=== PATIENT | female | born 1970 | race Caucasian/White ===

== ENCOUNTER → 2016-06-26 | Outpatient (REF) | payer MEDICARE | LOC: M LAB REF 12:23 | PROVIDERS: ATTEND Nurse Practitioner Adult Health | DX: D50.9 Iron deficiency anemia, unspecified (principal); Z11.59 Encounter for screening for other viral diseases ==

== ENCOUNTER → 2016-09-26 | Outpatient (REF) | payer MEDICARE | LOC: M LAB REF 12:55 | PROVIDERS: ATTEND Nurse Practitioner Adult Health | DX: D50.9 Iron deficiency anemia, unspecified (principal) ==

== ENCOUNTER → 2016-12-27 | Outpatient (REF) | payer MEDICARE | LOC: M LAB REF 11:29 | PROVIDERS: ATTEND Podiatrist | DX: L03.032 Cellulitis of left toe (principal) ==

== ENCOUNTER → 2017-06-11 | Outpatient (REF) | payer MEDICARE | LOC: M LAB REF 12:36 | DX: N39.0 Urinary tract infection, site not specified (principal) | CPT/HCPCS: 87086 ==

== ENCOUNTER → 2018-10-17 | Outpatient (REF) | payer MEDICARE | LOC: M LAB REF 12:19 | PROVIDERS: ATTEND Nurse Practitioner Adult Health | DX: D50.9 Iron deficiency anemia, unspecified (principal) ==

== ENCOUNTER 2019-06-09 12:12 | Day surgery (SDC) | payer MEDICARE ==
[~2019-06-09] VITALS: Ht 162.6 cm; Wt 99.8 kg
[~2019-06-09 12:12] MED LIST: FERR5ELX PO; HUMA100I5 SC; LANTINJ4 SC; METF10004 PO; NEUR300C PO; NS 1,000 ML IV ONE; SERT-138 PO; TRAZ-252 PO
[2019-06-09] MEDS ORDERED: LIDOCAINE 2% INJ 100 MG/5 ML SDV (FOR ANES.) As Ordered ONE (12:17)
[2019-06-09] MEDS ORDERED: propofoL 500 MG/50 ML VIAL As Ordered ONE (12:17)
--- NOTE | 2019-06-09 14:39 | ROOR ---
Patient Name: Mary Ewing Procedure Date: 06/09/2019 2:23 PM Date of : 1970 Age: 48 Room: [facility] Gender: Female Note Status: Finalized Procedure: Upper Endoscopy + Biopsies Indications: Unexplained iron deficiency anemia Providers: Rizwan Staples MD Referring MD: Ellyn Hou NP Requesting Provider: Medicines: Monitored Anesthesia Care Complications: No immediate complications. Procedure: Pre-Anesthesia Assessment: - The heart rate, respiratory rate, oxygen saturations, blood pressure, adequacy of pulmonary ventilation, and response to care were monitored throughout the procedure. The Endoscope was introduced through the mouth, and advanced to the second part of duodenum. The upper GI endoscopy was accomplished without difficulty. The patient tolerated the procedure well. Findings: The Z-line was regular and was found 35 cm from the incisors. Evidence of a gastric bypass was found. A gastric pouch with a small size was found. The staple line appeared intact. The gastrojejunal anastomosis was characterized by healthy appearing mucosa. This was traversed. Biopsies for histology were taken with a cold forceps for evaluation of celiac disease. The exam was otherwise without abnormality. Impression: - Z-line regular, 35 cm from the incisors. - Gastric bypass with a small-sized pouch and intact staple line. Gastrojejunal anastomosis characterized by healthy appearing mucosa. Biopsied. - The examination was otherwise normal. Recommendation: - Patient has a contact number available for emergencies. The signs and symptoms of potential delayed complications were discussed with the patient. Return to normal activities tomorrow. Written discharge instructions were provided to the patient. - Discharge patient to home. - Follow an antireflux regimen. - Continue present medications. - Await pathology results. - Telephone GI clinic for pathology results in 1 week. - Return to referring physician. - The findings and recommendations were discussed with the patient's family. Rizwan Staples MD Rizwan Staples MD 06/09/2019 2:39:23 PM Electronically signed by Rizwan Staples MD Number of Addenda: 0 Note Initiated On: 06/09/2019 2:23 PM Estimated Blood Loss: Estimated blood loss: none.
--- NOTE | 2019-06-09 15:11 | ROOR ---
Patient Name: Mary Ewing Procedure Date: 06/09/2019 2:24 PM Date of : 1970 Age: 48 Room: [facility] Gender: Female Note Status: Finalized Procedure: Total Colonoscopy to Cecum + Cold Snare Polypectomy Indications: Unexplained iron deficiency anemia Providers: Rizwan Staples MD Referring MD: Ellyn Hou NP Requesting Provider: Medicines: Monitored Anesthesia Care Complications: No immediate complications. Procedure: Pre-Anesthesia Assessment: - The heart rate, respiratory rate, oxygen saturations, blood pressure, adequacy of pulmonary ventilation, and response to care were monitored throughout the procedure. The Colonoscope was introduced through the anus and advanced to the cecum, identified by appendiceal orifice and ileocecal valve. The colonoscopy was performed without difficulty. The patient tolerated the procedure well. The quality of the bowel preparation was good. Findings: The perianal and digital rectal examinations were normal. Non-bleeding internal hemorrhoids were found during retroflexion. The hemorrhoids were small and Grade I (internal hemorrhoids that do not prolapse). A small polyp was found at 30 cm proximal to the anus. The polyp was sessile. The polyp was removed with a cold snare. Resection and retrieval were complete. Two sessile polyps were found in the cecum. The polyps were medium in size. These polyps were removed with a cold snare. Resection and retrieval were complete. The exam was otherwise without abnormality on direct and retroflexion views. Impression: - Non-bleeding internal hemorrhoids. - One small polyp at 30 cm proximal to the anus, removed with a cold snare. Resected and retrieved. - Two medium polyps in the cecum, removed with a cold snare. Resected and retrieved. - The examination was otherwise normal on direct and retroflexion views. - The exam was otherwise normal to the cecum. Recommendation: - Patient has a contact number available for emergencies. The signs and symptoms of potential delayed complications were discussed with the patient. Return to normal activities tomorrow. Written discharge instructions were provided to the patient. - High fiber diet. - Discharge patient to home. - Continue present medications. - Await pathology results. - Telephone GI clinic for pathology results in 1 week. - Repeat colonoscopy in 3 years for surveillance based on pathology results. - Return to referring physician. - The findings and recommendations were discussed with the patient's family. Rizwan Staples MD Rizwan Staples MD 06/09/2019 3:10:53 PM Electronically signed by Rizwan Staples MD Number of Addenda: 0 Note Initiated On: 06/09/2019 2:24 PM Estimated Blood Loss: Estimated blood loss: none.
[2019-06-09 15:30] VITALS: BP 150/71
== END 2019-06-09 15:46 | disposition home or self-care (01) ==
LOC: M OPP 12:12
PROVIDERS: ATTEND Internal Medicine Gastroenterology
DX: K64.0 First degree hemorrhoids (principal); D12.6 Benign neoplasm of colon, unspecified; D12.0 Benign neoplasm of cecum; D50.9 Iron deficiency anemia, unspecified; Z98.84 Bariatric surgery status; F17.210 Nicotine dependence, cigarettes, uncomplicated; E11.9 Type 2 diabetes mellitus without complications; Z79.4 Long term (current) use of insulin; Z79.899 Other long term (current) drug therapy; Z88.0 Allergy status to penicillin

== ENCOUNTER → 2019-09-09 | Outpatient (REF) | payer MEDICARE ==
[~2019-09-09] MED LIST changes: -NS 1,000 ML IV ONE
== END ==
LOC: M LAB REF 09:00
PROVIDERS: ATTEND Surgery
DX: L72.3 Sebaceous cyst (principal)

== ENCOUNTER → 2020-06-10 | Outpatient (REF) | payer MEDICARE ==
[2020-06-10 13:32] LABS: INR 0.92; PROTHROMBIN TIME 12.5 SECONDS (12.5-14.3)
[2020-06-10 13:33] LABS: PARTIAL THROMBOPLASTIN TIME 26.6 SECONDS (24.2-38.5)
== END ==
LOC: M LAB REF 12:17
PROVIDERS: ATTEND Internal Medicine
DX: Z01.818 Encounter for other preprocedural examination (principal)

== ENCOUNTER → 2021-03-16 | Outpatient (REF) | payer MEDICARE | LOC: M LAB REF 12:31 | PROVIDERS: ATTEND Nurse Practitioner Adult Health | DX: Z98.84 Bariatric surgery status (principal) ==

== ENCOUNTER → 2021-10-11 | Outpatient (REF) | payer MEDICARE ==
[2021-10-11 17:03] LABS: BACTERIA, URINE AUTO 3+ (NEGATIVE); MUCUS, URINE MODERATE (NEGATIVE); RBC, URINE AUTO 40 /HPF (0-3); SQUAMOUS EPITHELIAL CELL UR AU 10 /HPF (0-6); WBC, URINE AUTO TNTC /HPF (0-3)
== END ==
LOC: M LAB REF 16:44
PROVIDERS: ATTEND Nurse Practitioner Adult Health
DX: N39.0 Urinary tract infection, site not specified (principal)

== ENCOUNTER → 2022-07-03 | Outpatient (REF) | payer MEDICARE | LOC: M LAB REF 11:00 | PROVIDERS: ATTEND Nurse Practitioner Adult Health | DX: N39.0 Urinary tract infection, site not specified (principal) ==

== ENCOUNTER → 2023-01-10 | Outpatient (REF) | payer MEDICARE ==
[~2023-01-10] MED LIST changes: +FERR220E10 PO; -FERR5ELX PO
[2023-01-10 17:22] LABS: HEMATOCRIT 33.5 % (36.0-47.0)
[2023-01-10 17:33] LABS: PERCENT SATURATION 7.6 % (13.2-45.0)
[2023-01-10 17:35] LABS: FERRITIN 5.9 NG/ML (7.3-270.7)
== END ==
LOC: M LAB REF 16:38
PROVIDERS: ATTEND Nurse Practitioner Adult Health
DX: D50.9 Iron deficiency anemia, unspecified (principal)

== ENCOUNTER → 2023-07-03 | Outpatient (REF) | payer MEDICARE ==
[2023-07-03 14:07] LABS: HEMATOCRIT 37.1 % (36.0-47.0)
[2023-07-03 14:13] LABS: PERCENT SATURATION 9.9 % (13.2-45.0)
[2023-07-03 14:17] LABS: FERRITIN 5.2 NG/ML (7.3-270.7)
== END ==
LOC: M LAB REF 13:53
PROVIDERS: ATTEND Nurse Practitioner Adult Health
DX: D50.9 Iron deficiency anemia, unspecified (principal)

== ENCOUNTER 2024-02-14 08:42 | Day surgery (SDC) | payer MEDICARE ==
[~2024-02-14] VITALS: Ht 162.6 cm; Wt 73.5 kg
[2024-02-14] MEDS: CEFUROXIME 1MG/0.1ML INTRACAMERAL INJ As Ordered ONE (07:01)
[~2024-02-14 08:42] MED LIST changes: +ASPI81TA26 PO; +ATOR80TA59 PO; +CLOP75TA99 PO; +EZET10TA21 PO; +IRON27TA2 PO; +PHENYLEPHRINE 10% OPHTH SOL 5ML OD PRN; +SEMA0.257 SQ; +TELM1TAB33 PO; +THERTAB52 PO; +ZOLO100T PO
[2024-02-14] MEDS: LIDOCAINE 3.5 % 1ML OPHTH TOPICAL GEL OU ONE (10:20)
[2024-02-14] MEDS: OFLOXACIN 0.3 % (OCUFLOX) OPTH SOL 5ML OD ONE (10:20)
[2024-02-14] MEDS: ATROPINE SULFATE 1% OPHTH SOLN 2ML BTL OD SCH (10:20)
[2024-02-14] MEDS: PHENYLEPHRINE 2.5% OPHTH SOL 2ML OD SCH (10:21)
[2024-02-14] MEDS: TROPICAMIDE 1% OPHTH SOLN 15ML OD SCH (10:21)
[2024-02-14] MEDS ORDERED: MIDAZOLAM INJ 2MG/2ML VIAL As Ordered ONE (10:58)
[2024-02-14] MEDS: BSS IRRIG/VANCO(10MG)/TOBRA(5MG)/EPINEPH(1:1000-0.5CC)500ML BAG-ORONLY As Ordered ONE (11:13)
[2024-02-14] MEDS: LIDOCAINE 1% SDV 5ML VIAL As Ordered ONE (11:13)
[2024-02-14 11:28] VITALS: BP 145/68; TEMP 97.6; O2SAT 99
== END 2024-02-14 11:47 | disposition home or self-care (01) ==
LOC: M SDC 08:42
PROVIDERS: ATTEND Ophthalmology
DX: H25.11 Age-related nuclear cataract, right eye (principal); E11.9 Type 2 diabetes mellitus without complications; I25.2 Old myocardial infarction; Z95.5 Presence of coronary angioplasty implant and graft; Z79.899 Other long term (current) drug therapy; Z87.891 Personal history of nicotine dependence
CPT/HCPCS: 66984; J0697; J2250; V2632

== ENCOUNTER 2024-02-28 07:52 | Day surgery (SDC) | payer MEDICARE ==
[~2024-02-28] VITALS: Ht 163.8 cm; Wt 74.8 kg
[~2024-02-28 07:52] MED LIST changes: -PHENYLEPHRINE 10% OPHTH SOL 5ML OD PRN; +PHENYLEPHRINE 10% OPHTH SOL 5ML OS PRN
[2024-02-28] MEDS ORDERED: fentaNYL 100 MCG/2 ML INJECTION As Ordered ONE (08:15)
[2024-02-28] MEDS ORDERED: MIDAZOLAM INJ 2MG/2ML VIAL As Ordered ONE (08:16)
[2024-02-28] MEDS: OFLOXACIN 0.3 % (OCUFLOX) OPTH SOL 5ML OS ONE (10:00)
[2024-02-28] MEDS: LIDOCAINE 3.5 % 1ML OPHTH TOPICAL GEL OU ONE (10:00)
[2024-02-28] MEDS: PHENYLEPHRINE 2.5% OPHTH SOL 2ML OS SCH (10:30)
[2024-02-28] MEDS: TROPICAMIDE 1% OPHTH SOLN 15ML OS SCH (10:30)
[2024-02-28] MEDS: ATROPINE SULFATE 1% OPHTH SOLN 2ML BTL OS SCH (10:30)
[2024-02-28] MEDS: BSS IRRIG/VANCO(10MG)/TOBRA(5MG)/EPINEPH(1:1000-0.5CC)500ML BAG-ORONLY As Ordered ONE (10:38)
[2024-02-28] MEDS: LIDOCAINE 1% SDV 5ML VIAL As Ordered ONE (10:42)
[2024-02-28] MEDS: MOXIFLOXACIN 0.6MG/0.4ML INTRAOCULAR SYRINGE As Ordered ONE (10:43)
[2024-02-28 11:01] VITALS: BP 118/56; TEMP 97.3; O2SAT 100
== END 2024-02-28 11:03 | disposition home or self-care (01) ==
LOC: M SDC 07:52
PROVIDERS: ATTEND Ophthalmology
DX: E11.36 Type 2 diabetes mellitus with diabetic cataract (principal); H25.12 Age-related nuclear cataract, left eye; I10 Essential (primary) hypertension; E11.40 Type 2 diabetes mellitus with diabetic neuropathy, unspecified; E78.00 Pure hypercholesterolemia, unspecified; D64.9 Anemia, unspecified; I25.2 Old myocardial infarction; Z95.5 Presence of coronary angioplasty implant and graft; Z79.82 Long term (current) use of aspirin; Z79.4 Long term (current) use of insulin; Z79.84 Long term (current) use of oral hypoglycemic drugs; Z79.02 Long term (current) use of antithrombotics/antiplatelets; Z88.0 Allergy status to penicillin; Z98.84 Bariatric surgery status; Z90.710 Acquired absence of both cervix and uterus
CPT/HCPCS: 66984; J2250; J3010; V2632

== ENCOUNTER → 2024-07-31 | Outpatient (REF) | payer MEDICARE ==
[~2024-07-31] MED LIST changes: -PHENYLEPHRINE 10% OPHTH SOL 5ML OS PRN
== END ==
LOC: M LAB REF 11:42
PROVIDERS: ATTEND Nurse Practitioner Adult Health
DX: N39.0 Urinary tract infection, site not specified (principal)

== ENCOUNTER 2024-08-26 14:03 | Inpatient (IN) | payer MEDICARE ==
[~2024-08-26] VITALS: Ht 162.6 cm; Wt 76.3 kg
[2024-08-26 17:55] VITALS: BP 147/74; TEMP 97.2; O2SAT 97
[2024-08-26 19:38] VITALS: BP 126/76; TEMP 97.7; O2SAT 97
[2024-08-26 19:45] LABS: BASO # 0.1 10^3/uL (0.0-0.2); BASO % 0.9 % (0.0-1.0); EOS # 0.8 10^3/uL (0.0-0.5); EOS % 7.2 % (0.0-3.0); HEMATOCRIT 31.1 % (36.0-47.0); HEMOGLOBIN 9.6 g/dl (12.0-15.5); LYMPH # 3.7 10^3/uL (1.5-5.0); LYMPH % 32.4 % (24.0-44.0); MEAN CORPUSCULAR HEMOGLOBIN 26.4 pg (27.0-33.0); MEAN CORPUSCULAR HGB CONC 30.9 g/dl (32.0-36.5); MEAN CORPUSCULAR VOLUME 85.7 fl (80.0-96.0); MONO # 0.7 10^3/uL (0.0-0.8); MONO % 5.8 % (2.0-8.0); NEUTROPHILS # 6.1 10^3/uL (1.5-8.5); NEUTROPHILS % 53.4 % (36.0-66.0); PLATELET COUNT, AUTOMATED 587 10^3/uL (150-450); RED BLOOD COUNT 3.63 10^6/uL (4.00-5.40); WHITE BLOOD COUNT 11.5 10^3/uL (4.0-10.0)
[2024-08-26 19:54] LABS: ERYTHROCYTE SEDIMENTATION RATE 66 mm/hr (0-30)
[2024-08-26 19:57] LABS: INR 0.92; PARTIAL THROMBOPLASTIN TIME 25.5 SECONDS (24.8-34.2); PROTHROMBIN TIME 12.7 SECONDS (12.5-14.5)
[2024-08-26 20:05] LABS: C REACTIVE PROTEIN QUANTITATIV < 0.50 MG/DL (<1.0)
[2024-08-26 20:06] LABS: ALBUMIN 3.6 G/DL (3.2-5.2); ALKALINE PHOSPHATASE 79 U/L (35-104); ALT/SGPT 15 U/L (7.0-40); AST/SGOT 11 U/L (<34); BILIRUBIN,DIRECT < 0.1 MG/DL (<0.4); BILIRUBIN,TOTAL 0.2 MG/DL (0.3-1.2); BLOOD UREA NITROGEN 16 MG/DL (9-23); CALCIUM LEVEL 9.4 MG/DL (8.5-10.1); CARBON DIOXIDE LEVEL 24 MMOL/L (20-31); CHLORIDE LEVEL 105 MMOL/L (98-107); CREATININE FOR GFR 0.75 MG/DL (0.55-1.30); GLOMERULAR FILTRATION RATE > 90.0 (>51); GLUCOSE, FASTING 93 MG/DL (60-100); MAGNESIUM LEVEL 1.8 MG/DL (1.8-2.4); POTASSIUM SERUM 5.3 MMOL/L (3.5-5.1); SODIUM LEVEL 139 MMOL/L (136-145)
[2024-08-26] MEDS ORDERED: OXYC1TAB23 PO (20:29)
[2024-08-26] MEDS ORDERED: PRAZ1CAP PO (20:30)
[2024-08-26] MEDS ORDERED: MED REC COMMENT (20:34)
[2024-08-26] MEDS ORDERED: HOME MED LIST COMPLETE! XX SCH (20:35)
[2024-08-26] MEDS ORDERED: ONDANSETRON 4MG ORAL DISINTEGRATING TAB PO PRN (21:10)
[2024-08-26] MEDS ORDERED: MORPHINE 2 MG/ML 1ML VIAL IV PRN (21:10)
[2024-08-26] MEDS ORDERED: GLUCOSE 4 GM CHEW PO PRN (21:10)
[2024-08-26] MEDS ORDERED: NALOXONE INJ 0.4MG/1ML VIAL IV PRN (21:10)
[2024-08-26] MEDS ORDERED: MAALOX 30 ML SUSP *UDC PO PRN (21:10)
[2024-08-26] MEDS ORDERED: MORPHINE 4 MG/ML 1ML VIAL IV PRN (21:10)
[2024-08-26] MEDS ORDERED: GLUCAGON INJ 1MG VIAL SC PRN (21:10)
[2024-08-26] MEDS ORDERED: MOM 30ML SUSPENSION UDC PO PRN (21:10)
[2024-08-26] MEDS ORDERED: METHOCARBAMOL 1,000 MG/10 ML VIAL IV PRN (21:10)
[2024-08-26] MEDS ORDERED: DEXTROSE 50% 50ML SYRINGE IV PRN (21:10)
[2024-08-26] MEDS: ACETAMINOPHEN *IV* 1,000 MG in IV 1 EA IV SCH (21:59)
[2024-08-26] MEDS: METHOCARBAMOL 1,000 MG/10 ML VIAL IV ONE (22:14)
[2024-08-27] VITALS (9 sets, daily range): BP systolic 95–135; BP diastolic 54–80; TEMP 96.8–97.7; O2SAT 97–100
[2024-08-27] MEDS: MORPHINE 2 MG/ML 1ML VIAL IV PRN (04:40)
[2024-08-27 06:02] LABS: HEMATOCRIT 28.4 % (36.0-47.0); HEMOGLOBIN 8.8 g/dl (12.0-15.5); MEAN CORPUSCULAR HEMOGLOBIN 26.3 pg (27.0-33.0); MEAN CORPUSCULAR VOLUME 84.8 fl (80.0-96.0); PLATELET COUNT, AUTOMATED 496 10^3/uL (150-450); RED BLOOD COUNT 3.35 10^6/uL (4.00-5.40); WHITE BLOOD COUNT 8.6 10^3/uL (4.0-10.0)
[2024-08-27 06:26] LABS: ALBUMIN 3.2 G/DL (3.2-5.2); ALKALINE PHOSPHATASE 70 U/L (35-104); ALT/SGPT 12 U/L (7.0-40); AST/SGOT 14 U/L (<34); BILIRUBIN,TOTAL 0.2 MG/DL (0.3-1.2); BLOOD UREA NITROGEN 16 MG/DL (9-23); CARBON DIOXIDE LEVEL 24 MMOL/L (20-31); CHLORIDE LEVEL 105 MMOL/L (98-107); CREATININE FOR GFR 0.75 MG/DL (0.55-1.30); GLOMERULAR FILTRATION RATE > 90.0 (>51); GLUCOSE, FASTING 93 MG/DL (60-100); MAGNESIUM LEVEL 1.7 MG/DL (1.8-2.4); POTASSIUM SERUM 4.9 MMOL/L (3.5-5.1); SODIUM LEVEL 138 MMOL/L (136-145); TOTAL PROTEIN 6.1 G/DL (5.7-8.2)
[2024-08-27] MEDS: DOCUSATE SODIUM 100MG CAPSULE PO SCH ×2 (07:50→09:00)
[2024-08-27] MEDS ORDERED: ONDANSETRON 4MG 2ML VIAL IV PRN ×3 (07:55→11:30)
[2024-08-27] MEDS ORDERED: propofoL 200 MG/20 ML VIAL As Ordered ONE (08:18)
[2024-08-27] MEDS ORDERED: dexmedeTOMIDine (4MCG/ML)200MCG/50ML BTL (PRECEDEX) As Ordered ONE (08:18)
[2024-08-27] MEDS ORDERED: LIDOCAINE 2% 100MG/5ML SDV (FOR ANES.) As Ordered ONE (08:18)
[2024-08-27] MEDS ORDERED: KETOROLAC 30 MG/ML 1ML VIAL As Ordered ONE (08:18)
[2024-08-27] MEDS ORDERED: ONDANSETRON 4MG 2ML VIAL As Ordered ONE (08:18)
[2024-08-27] MEDS ORDERED: MIDAZOLAM INJ 2MG/2ML VIAL As Ordered ONE (08:24)
[2024-08-27] MEDS ORDERED: fentaNYL 100 MCG/2 ML INJECTION As Ordered ONE (08:24)
[2024-08-27] MEDS: ceFAZolin SODIUM 2 GM VIAL As Ordered ONE (09:20)
[2024-08-27] MEDS: TRANEXAMIC ACID 100 MG/ML 10ML VIAL As Ordered ONE (09:25)
[2024-08-27] MEDS ORDERED: ePHEDrine SULFATE 25 MG/5 ML(5MG/ML) SYRINGE As Ordered ONE (10:20)
[2024-08-27] MEDS: VANCOMYCIN 1000MG/20ML VIAL As Ordered ONE (10:31)
[2024-08-27] MEDS ORDERED: PHENYLephrine 500MCG 5ML (100MCG/ML) SYRINGE As Ordered ONE (10:45)
[2024-08-27] MEDS: LR 1,000 ML IV SCH (10:50)
[2024-08-27] MEDS ORDERED: GLUCOSE 4 GM CHEW PO PRN (10:50)
[2024-08-27] MEDS ORDERED: HYDROMORPHONE HCL 0.5 MG/ 0.5 ML SYRINGE IV PRN (10:50)
[2024-08-27] MEDS ORDERED: INSULIN LISPRO (NovoLOG) PER UNIT SC PRN (10:50)
[2024-08-27] MEDS ORDERED: GLUCAGON INJ 1MG VIAL SC PRN (10:50)
[2024-08-27] MEDS ORDERED: oxyCODONE 5MG TAB PO PRN (10:50)
[2024-08-27] MEDS ORDERED: DEXTROSE 50% 50ML SYRINGE IV PRN (10:50)
[2024-08-27] MEDS ORDERED: fentaNYL 100 MCG/2 ML INJECTION IV PRN (10:50)
[2024-08-27] MEDS ORDERED: SENNA 8.6 MG TAB (SENOKOT) PO PRN (11:30)
[2024-08-27] MEDS ORDERED: HYDROmorphone 2 MG TAB PO PRN (11:30)
[2024-08-27] MEDS ORDERED: diphenhydrAMINE 50MG/ML VIAL IV PRN (11:30)
[2024-08-27] MEDS ORDERED: PILL CUTTER 1 EACH XX PRN (11:45)
[2024-08-27] MEDS: oxyCODONE 5MG TAB PO PRN (15:54)
[2024-08-27] MEDS ORDERED: IBUPROFEN 600MG TAB PO PRN (16:00)
[2024-08-27] MEDS: ceFAZolin SODIUM 2 GM in DEXTROSE 5% (D5W) ADV/MINI-BAG 50 ML IV SCH (16:47)
[2024-08-27] MEDS: MORPHINE 4 MG/ML 1ML VIAL IV PRN (19:43)
[2024-08-27] MEDS: PRAZOSIN 1 MG CAP PO SCH (20:18)
[2024-08-27] MEDS: traZODone 50 MG TAB PO SCH (20:20)
[2024-08-27] MEDS: INSULIN LISPRO (NovoLOG) PER UNIT SC SCH ×2 (20:21)
[2024-08-27] MEDS: GABAPENTIN 300 MG CAP PO SCH (20:22)
[2024-08-27] MEDS ORDERED: ASPIRIN 81MG ENTERIC TABLET PO SCH (21:00)
[2024-08-28] VITALS (12 sets, daily range): BP systolic 93–138; BP diastolic 49–72; TEMP 97–97.8; O2SAT 95–100
[2024-08-28 06:19] LABS: BASO % 0.3 % (0.0-1.0); EOS # 0.1 10^3/uL (0.0-0.5); EOS % 1.1 % (0.0-3.0); HEMATOCRIT 21.7 % (36.0-47.0); LYMPH # 2.4 10^3/uL (1.5-5.0); LYMPH % 21.6 % (24.0-44.0); MEAN CORPUSCULAR HEMOGLOBIN 26.9 pg (27.0-33.0); MEAN CORPUSCULAR HGB CONC 31.3 g/dl (32.0-36.5); MEAN CORPUSCULAR VOLUME 85.8 fl (80.0-96.0); MONO # 0.7 10^3/uL (0.0-0.8); NEUTROPHILS # 7.8 10^3/uL (1.5-8.5); NEUTROPHILS % 70.6 % (36.0-66.0); PLATELET COUNT, AUTOMATED 460 10^3/uL (150-450); RED BLOOD COUNT 2.53 10^6/uL (4.00-5.40)
[2024-08-28 06:23] LABS: HEMOGLOBIN 6.8 g/dl (12.0-15.5)
[2024-08-28 06:45] LABS: CALCIUM LEVEL 8.8 MG/DL (8.5-10.1); CREATININE FOR GFR 1.07 MG/DL (0.55-1.30); POTASSIUM SERUM 4.9 MMOL/L (3.5-5.1)
[2024-08-28] MEDS: ATORVASTATIN 20 MG TAB PO SCH (08:23)
[2024-08-28] MEDS: INSULIN LISPRO (NovoLOG) PER UNIT SC SCH (08:23)
[2024-08-28] MEDS: EZETIMIBE 10MG TABLET (ZETIA) PO SCH (08:24)
[2024-08-28] MEDS: SERTRALINE 100 MG TAB PO SCH (08:24)
[2024-08-28] MEDS ORDERED: ACETAMINOPHEN 325 MG TAB PO PRN (10:00)
[2024-08-28] MEDS: FUROSEMIDE 20MG/2ML VIAL IV ONE (12:31)
[2024-08-28 13:22] LABS: HEMATOCRIT 24.9 % (36.0-47.0); HEMOGLOBIN 7.9 g/dl (12.0-15.5); MEAN CORPUSCULAR HEMOGLOBIN 27.3 pg (27.0-33.0); MEAN CORPUSCULAR HGB CONC 31.7 g/dl (32.0-36.5); MEAN CORPUSCULAR VOLUME 86.2 fl (80.0-96.0); PLATELET COUNT, AUTOMATED 453 10^3/uL (150-450); RED BLOOD COUNT 2.89 10^6/uL (4.00-5.40); WHITE BLOOD COUNT 14.4 10^3/uL (4.0-10.0)
[2024-08-28] MEDS ORDERED: ACET-897 PO (14:56)
[2024-08-28] MEDS ORDERED: IBUP-1022 PO (14:56)
[2024-08-28] MEDS ORDERED: ASPI81TA26 PO (14:56)
[2024-08-28] MEDS ORDERED: SENN1TAB85 PO (14:56)
== END 2024-08-28 16:35 | disposition home or self-care (01) | DRG 482 ==
LOC: M MS5PR 17:41
PROVIDERS: ADMIT Internal Medicine; ATTEND Internal Medicine
PROC: 30233N1 Transfusion of Nonautologous Red Blood Cells into Peripheral Vein, Percutaneous Approach (ICD-10-PCS; 2024-08-27)
PROC: 0QS60ZZ Reposition Right Upper Femur, Open Approach (ICD-10-PCS; principal; 2024-08-27 09:00)
DX: S72.111A Displaced fracture of greater trochanter of right femur, initial encounter for closed fracture (principal); E11.319 Type 2 diabetes mellitus with unspecified diabetic retinopathy without macular edema; E78.5 Hyperlipidemia, unspecified; F32.A Depression, unspecified; I50.9 Heart failure, unspecified; I25.10 Atherosclerotic heart disease of native coronary artery without angina pectoris; E11.22 Type 2 diabetes mellitus with diabetic chronic kidney disease; E11.40 Type 2 diabetes mellitus with diabetic neuropathy, unspecified; D63.1 Anemia in chronic kidney disease; N18.9 Chronic kidney disease, unspecified; I25.2 Old myocardial infarction; Z89.412 Acquired absence of left great toe; Z98.84 Bariatric surgery status; Z98.41 Cataract extraction status, right eye; Z98.42 Cataract extraction status, left eye; Z98.62 Peripheral vascular angioplasty status; Z87.891 Personal history of nicotine dependence; Z79.82 Long term (current) use of aspirin; Z79.4 Long term (current) use of insulin; Z79.899 Other long term (current) drug therapy; Z88.0 Allergy status to penicillin; W19.XXXA Unspecified fall, initial encounter; Y93.9 Activity, unspecified; Y92.9 Unspecified place or not applicable; Y99.8 Other external cause status

== ENCOUNTER → 2024-09-08 | Outpatient (CLI) | payer MEDICARE ==
[~2024-09-08] MED LIST changes: +ACET-897 PO; +IBUP-1022 PO; +MED REC COMMENT; +OXYC1TAB23 PO; +PRAZ1CAP PO; +SENN1TAB85 PO
== END ==
LOC: M SOG 07:16
PROVIDERS: ATTEND Physician Assistant
DX: S72.144A Nondisplaced intertrochanteric fracture of right femur, initial encounter for closed fracture (principal); W18.30XA Fall on same level, unspecified, initial encounter; Y92.009 Unspecified place in unspecified non-institutional (private) residence as the place of occurrence of the external cause